=== PATIENT | male | born 1990 | race Caucasian/White ===

== ENCOUNTER 2021-12-04 19:29 | Inpatient (IN) | payer OTHER ==
[2021-12-04 19:54] VITALS: BMI 23.9
[2021-12-04] MEDS ORDERED: ACETAMINOPHEN 325 MG TABLET (FP) PO PRN ×2 (20:41)
[2021-12-04] MEDS ORDERED: LOPERAMIDE HCL 2 MG CAPSULE PO PRN (20:41)
[2021-12-04] MEDS ORDERED: ONDANSETRON *ODT* 4 MG TABLET SL PRN (20:41)
[2021-12-04] MEDS ORDERED: MELATONIN 5 MG TABLETS PO PRN (20:41)
[2021-12-04] MEDS ORDERED: METHOCARBAMOL 500 MG TABLET PO PRN (20:41)
[2021-12-04] MEDS ORDERED: BISMUTH SUBSALICYLATE 524 MG/30 ML PO PRN (20:41)
[2021-12-04] MEDS ORDERED: NICOTINE 10 MG CARTRIDGE (INHALER) IH PRN (20:41)
[2021-12-04] MEDS ORDERED: MAG HYDROX/AL HYDROX/SIMETH 30 ML UNIT-DOSE CUP PO PRN (20:41)
[2021-12-04] MEDS ORDERED: MAGNESIUM HYDROX 2400MG/30ML ORAL SUSPENSION 30 ML CUP PO PRN (20:41)
[2021-12-04] MEDS ORDERED: IBUPROFEN 400 MG TABLET (FP) PO PRN (20:41)
[2021-12-04] MEDS ORDERED: MENTHOL/PHENOL 1 EACH UD MM PRN (20:41)
[2021-12-04] MEDS ORDERED: MAGNESIUM CITRATE 300 ML BOTTLE PO PRN (20:41)
[2021-12-04] MEDS ORDERED: cloNIDine HCL 0.1 MG TABLET PO PRN (20:46)
[2021-12-04] MEDS: THIAMINE HCL 100 MG TABLET (FP) PO SCH (21:43)
[2021-12-04] MEDS: levETIRAcetam 250 MG TABLET PO SCH (22:43)
[2021-12-04] MEDS ORDERED: methaDONE HCL 10 MG TABLET (FOR DETOX USE ONLY) PO ONE (23:00)
[2021-12-05] MEDS ORDERED: methaDONE HCL 10 MG TABLET (FOR DETOX USE ONLY) ONE (09:14)
[2021-12-05] MEDS ORDERED: PRENATAL VITAMINS W/ FOLIC ACID TABLET (FP) PO SCH (10:00)
[2021-12-05] MEDS: hydrOXYzine PAMOATE 25 MG CAPSULE (FP) PO PRN ×2 (10:34→22:29)
[2021-12-05] MEDS: levETIRAcetam 250 MG TABLET PO SCH ×2 (10:34→22:26)
[2021-12-05] MEDS ORDERED: diazePAM 5 MG TABLET PO PRN (14:30)
[2021-12-05 21:05] VITALS: BP 130/83; PULSE 78; TEMP 96.8
[2021-12-05] MEDS: THIAMINE HCL 100 MG TABLET (FP) PO SCH (22:26)
[2021-12-06] MEDS ORDERED: methaDONE HCL 10 MG TABLET (FOR DETOX USE ONLY) PO ONE (10:00)
[2021-12-08] MEDS ORDERED: methaDONE HCL 10 MG TABLET (FOR DETOX USE ONLY) PO ONE (10:00)
== END 2021-12-06 09:36 | disposition left against medical advice (07) | DRG 770 ==
LOC: YASAS 19:29 → Y6N 20:47
PROVIDERS: ADMIT Allergy & Immunology; ATTEND Allergy & Immunology
PROC: HZ2ZZZZ Detoxification Services for Substance Abuse Treatment (ICD-10-PCS; principal; 2021-12-04)
DX: F11.23 Opioid dependence with withdrawal (principal); F14.20 Cocaine dependence, uncomplicated; F17.210 Nicotine dependence, cigarettes, uncomplicated; R56.9 Unspecified convulsions; Z86.19 Personal history of other infectious and parasitic diseases; Z88.1 Allergy status to other antibiotic agents
CPT/HCPCS: 87811; C9803; J0735; U0003; U0005